=== PATIENT | male | born 1990 | race Caucasian/White ===

== ENCOUNTER 2018-05-25 17:22 | Emergency (ER) | payer OTHER ==
--- NOTE | 2018-05-25 17:46 | UC ---
Cardiac HPI - HPI Summary HPI Summary: Started with shortness of breath. Going on 1 hour. Associated with some chest pressure. Feeling anxious. Feeling lightheaded. Grandfather in 40's with [place]. - History of Current Complaint Chief Complaint: UCGeneralIllness Stated Complaint: SOB,LIGHT HEADED,TINGLING IN LEGS Time Seen by Provider: 05/25/18 17:39 Hx Obtained From: Patient Onset/Duration: Sudden Onset, Lasting Hours - 1 Timing: Constant Initial Severity: Mild Current Severity: Mild Pain Intensity: 0 Chest Pain Location: Mid Sternal Character: Pressure/Squeezing - Allergy/Home Medications Allergies/Adverse Reactions: Allergies Allergy/AdvReac Type Severity Reaction Status Date / Time amoxicillin [From Augmentin] Allergy Unknown Verified 05/25/18 17:28 Reaction Details clavulanic acid Allergy Unknown Verified 05/25/18 17:28 [From Augmentin] Reaction Details Home Medications: Home Medications NK [No Home Medications Reported] 05/25/18 [History Confirmed 05/25/18] PMH/Surg Hx/FS Hx/Imm Hx Previously Healthy: Yes - Surgical History Surgical History: None - Family History Known Family History: Positive: Cardiac Disease - Social History Occupation: Employed Full-time Lives: With Family Alcohol Use: Rare Substance Use Type: None Smoking Status (MU): Never Smoked Tobacco Review of Systems Respiratory: Shortness Of Breath Cardiovascular: Chest Pain Musculoskeletal: Myalgia - leg pain Is Patient Immunocompromised?: No All Other Systems Reviewed And Are Negative: Yes Physical Exam Triage Information Reviewed: Yes Appearance: No Pain Distress, Well-Nourished, Ill-Appearing Vital Signs: Initial Vital Signs Temp 97.5 F 05/25/18 17:26 Pulse 129 05/25/18 17:26 Resp 20 05/25/18 17:26 BP 182/80 05/25/18 17:26 Pulse Ox 100 05/25/18 17:26 Vital Signs Reviewed: Yes Eyes: Positive: Conjunctiva Clear ENT: Positive: Pharynx normal, TMs normal Neck exam: Normal Respiratory Exam: Normal Cardiovascular Exam: Normal Abdomen Description: Positive: Nontender, No Organomegaly, Soft Musculoskeletal Exam: Normal Neurological Exam: Normal Psychological Exam: Normal Skin Exam: Normal - Assessment/Plan Course Of Treatment: Spoke with patient. Needs further evaluation with slightly abnormal EKG with worrisome symptoms. - Differential Diagnoses - Chest Pain Differential Diagnosis/HQI/PQRI: Acute OH, ACS, Angina, GI Disease, Pulmonary Embolism - Differential Diagnoses - Palpitations Differential Diagnosis/HQI/PQRI: Coronary Artery Disease - Clinical Impression Provider Diagnoses: Chest pain. Abnormal EKG. - Physician Notifications Discussed Patient Care With: Jason Pierce Time Discussed With Above Provider: 17:54 Instructed by Provider To: Transfer - to [facility] Discharge - Sign-Out/Discharge Documenting (check all that apply): Patient Departure All imaging exams completed and their final reports reviewed: No Studies - Discharge Plan Condition: Guarded Disposition: TRANS HIGHER LVL OF CARE FAC - Billing Disposition and Condition Condition: GUARDED Disposition: Trans Higher Lvl of Care Fac
[2018-05-25] MEDS ORDERED: Aspirin 81 mg CHEW TAB* 81 MG TAB.CHEW PO ONE (17:49)
[2018-05-25] MEDS ORDERED: Nitroglycerin TAB 0.4 MG* 0.4 MG TAB SL ONE (17:50)
[2018-05-25 18:02] VITALS: BP 149/73
== END 2018-05-25 18:08 | disposition short-term general hospital (02) ==
LOC: UCCORT 17:22
DX: R07.9 Chest pain, unspecified (principal); R94.31 Abnormal electrocardiogram [ECG] [EKG]; R06.02 Shortness of breath; R42 Dizziness and giddiness; Z88.1 Allergy status to other antibiotic agents; Z88.0 Allergy status to penicillin
CPT/HCPCS: 93005; 99204; A9270-GY; G0463

== ENCOUNTER 2018-05-25 18:53 | Emergency (ER) | payer OTHER ==
--- NOTE | 2018-05-25 19:26 | ED ---
Shortness of Breath - HPI Summary HPI Summary: This patient is a 27 year old M [facility] to [facility] with a chief complaint of lightheadedness and SOB beginning at 1700 this evening after going shopping. After his symptoms developed [facility] and his lightheadedness improved. An EKG was performed and patient was told the EKG was abnormal. Patients SOB persists. Patient denies current chest pain, cough, and nausea. Patient reports calf pain. Patient reports recent bronchitis roughly 3 weeks ago. PMHx includes asthma. - History of Current Complaint Chief Complaint: EDShortnessOfBreath Time Seen by Provider: 05/25/18 19:10 Hx Obtained From: Patient Onset/Duration: Sudden Onset, Lasting Hours Timing: Constant Dyspnea At: Rest Alleviating Factors: Nothing Associated Signs & Symptoms: Dizzy, Calf Pain/Swelling - Allergy/Home Medications Allergies/Adverse Reactions: Allergies Allergy/AdvReac Type Severity Reaction Status Date / Time amoxicillin [From Augmentin] Allergy Unknown Verified 05/25/18 19:07 Reaction Details clavulanic acid Allergy Unknown Verified 05/25/18 19:07 [From Augmentin] Reaction Details PMH/Surg Hx/FS Hx/Imm Hx Cardiovascular History: Denies: Hx Hypertension Respiratory History: Reports: Hx Asthma - Surgical History Surgery Procedure, Year, and Place: none - Immunization History Date of Tetanus Vaccine: unk Date of Influenza Vaccine: unk Infectious Disease History: No Infectious Disease History: Denies: Traveled Outside the [place] in Last 30 Days - Family History Known Family History: Positive: Cardiac Disease - Social History Alcohol Use: Rare Substance Use Type: Reports: None Smoking Status (MU): Never Smoked Tobacco Review of Systems Positive: Other - lightheaded Negative: Chest Pain Positive: Shortness Of Breath. Negative: Cough Negative: Nausea Positive: Myalgia All Other Systems Reviewed And Are Negative: Yes Physical Exam - Summary Physical Exam Summary: Appearance: Well-appearing, Well-nourished, lying in bed comfortably Skin: Warm, dry, no obvious rash Eyes: sclera anicteric, no conjunctival pallor ENT: mucous membranes moist, pharynx appears normal Neck: Supple, nontender Respiratory: Clear to auscultation, no signs of respiratory distress Cardiovascular: Normal S1, S2. No murmurs. Normal distal pulses in tibial and radial bilaterally. Tachycardic. Abdomen: Soft, nontender, normal active bowel sounds present Musculoskeletal: Normal, Strength/ROM Intact Neurological: A&Ox3, awake and alert, mentation is normal, speech is fluent and appropriate Psychiatric: affect is normal, does not appear anxious or depressed Triage Information Reviewed: Yes Vital Signs On Initial Exam: Initial Vitals Pulse Resp BP Pulse Ox 106 24 137/90 100 05/25/18 18:57 05/25/18 18:57 05/25/18 18:57 05/25/18 18:57 Vital Signs Reviewed: Yes Diagnostics - Vital Signs Vital Signs Temp Pulse Resp BP Pulse Ox 05/25/18 19:06 99.7 F 106 14 137/90 100 05/25/18 19:00 104 19 96 05/25/18 18:57 106 24 137/90 100 - Laboratory Result Diagrams: 05/25/18 19:47 05/25/18 19:47 Lab Statement: Any lab studies that have been ordered have been reviewed, and results considered in the medical decision making process. - Radiology CXR Radiology Interpretation Completed By: ED Physician - Normal CXR - EKG 1940 Cardiac Rate: Tachycardia - 104 BPM EKG Rhythm: Sinus Tachycardia - normal EKG - Additional Comments Diagnostic Additional Comments: A Venous Doppler Study reveals: Normal exam. No deep venous thrombosis or other acute abnormality. ED Physician has reviewed this report. Course/Dx - Course Course Of Treatment: 27 year old M presenting with lightheadedness and SOB beginning at 1700 this evening after going shopping. After his symptoms developed [facility] and his [facility]headedness improved. Patient reports current SOB and calf pain. Patient was tachycardic, but EKG is otherwise normal. Patients CXR and Venous Doppler study are negative for acute findings. Bloodwork is unremarkable. Results discussed with patient. Patient will be discharged. - Diagnoses Provider Diagnoses: Dyspnea Discharge - Sign-Out/Discharge Documenting (check all that apply): Patient Departure - discharged - Discharge Plan Condition: Good Disposition: HOME Patient Education Materials: Dyspnea (ED) Referrals: [facility] [Outside] - 3 Days (if having any further problems) No Primary Care Phys,NOPCP [Primary Care Provider] - - Billing Disposition and Condition Condition: GOOD Disposition: Home - Attestation Statements Document Initiated by Scribe: Yes Documenting Scribe: Ronda Novoa Provider For Whom Scribe is Documenting (Include Credential): Brock Salazar MD Scribe Attestation: I, Ronda Novoa, scribed for Brock Salazar MD on 05/26/18 at 0131. Scribe Documentation Reviewed: Yes Provider Attestation: The documentation as recorded by the scribe, Ronda Novoa accurately reflects the service I personally performed and the decisions made by me, Brock Salazar MD
[2018-05-25 19:59] LABS: ABS Basophils 0.1 10^3/ul (0-0.2); ABS Eosinophils 0.3 10^3/ul (0-0.6); ABS Lymphocytes 1.2 10^3/ul (1.0-4.8); ABS Monocytes 0.7 10^3/ul (0-0.8); ABS Neutrophils 7.7 10^3/ul (1.5-7.7); ABS Nucleated RBC 0 10^3/ul; Eosinophil % 2.6 % (0-6); Hematocrit 46 % (42-52); Hemoglobin 15.8 g/dl (14.0-18.0); Lymphocyte % 12.3 % (25-47); Mean Corpuscular HGB Conc 34 g/dl (31-36); Mean Corpuscular Hemoglobin 29 pg (27-31); Mean Corpuscular Volume 86 fL (80-94); Mean Platelet Volume 7.4 um3 (7.4-10.4); Nucleated Red Blood Cells % 0.3; Platelet Count 267 10^3/ul (150-450); Red Blood Count 5.37 10^6/ul (4.00-5.40); Red Cell Distribution Width 13 % (10.5-15); White Blood Count 9.9 10^3/ul (3.5-10.8)
[2018-05-25 20:47] LABS: EGFR Non-African American 79.9 (>60)
--- NOTE | 2018-05-25 22:44 | RAD ---
EXAM: US Right Duplex Lower Extremity Veins, Limited EXAM DATE/TIME: 05/25/2018 7:35 PM CLINICAL HISTORY: 27 years old, male; Pain; Leg, lower; Right; Additional info: Pain, R/O dvt TECHNIQUE: Real-time Duplex ultrasound of the Right Lower Extremity with 2-D ceja scale, color Doppler flow and spectral waveform analysis. Limited exam was focused on the right lower extremity veins. COMPARISON: No relevant prior studies available. FINDINGS: Right deep veins: Unremarkable. The common femoral, femoral and popliteal veins are patent without thrombus. Normal compressibility, augmentation response and Doppler waveforms. Right superficial veins: Unremarkable. Saphenofemoral junction is patent without thrombus. Soft tissues: Unremarkable. IMPRESSION: Normal exam. No deep venous thrombosis or other acute abnormality. To contact [facility] with a general question: [facility] - [phone] For direct physician to physician contact: Physician Hotline - [phone] [facility] ([facility] Facility ID #[id number])
[2018-05-25 23:31] VITALS: BP 156/79
--- NOTE | 2018-05-26 07:12 | RAD ---
INDICATION: Shortness of breath. COMPARISON: There are no relevant prior studies available for comparison. TECHNIQUE: A portable view of the chest was obtained. FINDINGS: Cardiac and mediastinal contours appear to be within normal limits. The lungs are clear. No pleural effusion is seen. IMPRESSION: NO EVIDENCE FOR ACUTE DISEASE. R0
== END 2018-05-25 23:32 | disposition home or self-care (01) ==
LOC: ED 18:53
DX: R06.00 Dyspnea, unspecified (principal); R42 Dizziness and giddiness; M79.669 Pain in unspecified lower leg; M79.89 Other specified soft tissue disorders; Z88.1 Allergy status to other antibiotic agents; Z88.0 Allergy status to penicillin; Z82.49 Family history of ischemic heart disease and other diseases of the circulatory system
CPT/HCPCS: 36415; 71045; 80053; 84484; 85025; 85379; 93005; 99283